=== PATIENT | female | born 1985 | race Caucasian/White ===

== ENCOUNTER 2018-02-09 04:47 | Inpatient (IN) | payer SELFPAY ==
[2018-02-09] MEDS ORDERED: Sodium Chloride 0.9% 10 ML Syringe FLUSH PRN (05:43)
[2018-02-09] MEDS ORDERED: Ampicillin 2 GM in Sodium Chloride 0.9% 100 ML IV ONE (05:43)
[2018-02-09] MEDS ORDERED: Lactated Ringers 1,000 ML IV SCH (05:45)
[2018-02-09] MEDS ORDERED: Oxytocin/Lactated Ringers 10 UNIT/1,000 ML BAG IV SCH ×2 (05:45→13:00)
[2018-02-09] MEDS: Ampicillin 1 GM in Sodium Chloride 0.9% 100 ML IV SCH ×3 (09:56→18:48)
--- NOTE | 2018-02-09 19:58 | PCM.LDHP ---
L&D History of Present Illness - General Date of Service: 02/09/18 Admit Problem/Dx: Patient Status Order with Admit Dx/Problem 02/09/18 05:43 Patient Status [ADT] Routine Admission Diagnosis/Problem Admission Diagnosis/Problem 02/09/18 19:52 40-1/7 week intrauterine , active labor, her previous section with desire for trial labor in an attempt to . Source of Information: Patient History Limitations: Reports: No Limitations - History of Present Illness Introduction:: History of present illness: Patient is a 32-year-old 4 para 4004 (full- term twins 1) who is admitted on 02/09/2018 in early active labor. She is ryland every 3-8 minutes is minimally to moderately uncomfortable and is unable to rest with them. Her DANNI is 02/08/2018 as determined by her certain last menstrual periods starting 05/04/2017. DANNI is supported by 2 ultrasounds first one being done on 06/23/2017 and again on 11/19/2017. Baby has been active. heart tones are in reassuring. Initially membranes are intact but are artificially ruptured resulting in a small amount of clear amniotic fluid. 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 Her certain last menstrual start 05/04/2017. Her cycles are regular. They occur every 28 days and last for prostate 5 days using no control to time conception. Menarche age 15. Previous deliveries have included the followin. Twin gestation delivering 04/16/2016 at 38 weeks gestational age: Twin A 6 lbs. 4 oz. female, section, breech presentation, child's name is Jamie. Twin B, 6 lbs. 6 oz., female, section also breech. Child's name is Crystian 2. 06/06/2014 delivered at 38 weeks gestation, 7 lbs. 6 oz.'s name is Nataly 3. 07/19/2012 delivered at 39 weeks gestational age Samantha NOEL Patient declined genetic testing. She declined flu vaccination. She desired a trial of labor after section for vaginal after section. The procedure, risks, benefits are discussed in detail with patient. She is group B strep positive and therefore is a candidate for antibiotic prophylaxis in labor and delivery. Section was done for breech breech twins. She plans to breast-feed. Patient was in centering . She began her care at 7 weeks gestational age on 06/23/2017. Her weight gain was from 170 up to 191.2 pounds. Her fundal height growth was normal. Her vital signs are stable. She had a relatively unremarkable . Laboratory testing in showed blood to be A positive. Negative antibody screen. First hemoglobin was 12.8 g/dL. Weight was were 257, 000. Her Pap smear was negative. She is rubella immune. RPR is nonreactive. Hepatitis B and HIV assays were both negative. Gonorrhea and chlamydia assays were both negative. Second trimester laboratory testing showed hemoglobin 11.5 which time she was started on ferrous sulfate 325 mg per day. Her platelets are normal at 246,000. Her 1 hour GTT was 120. Her group B strep screen was positive. Allergies: none Medications: Past medical history: 1. Vaginal delivery 2 Past surgical history: 1. Primary section for breech breech twins 2015 2. Pilonidal cyst removal 2004 Family history: No bleeding, blood clotting, anesthesia or -related problems no known family. Social history: Patient is , lives in [place], [place]. 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 She is a college graduate. She does not use any significant loss of alcohol, drugs or tobacco. Her 's name is Cole Silva. Review of systems: She is reporting good activity. Patient is having uterine activity contractions every 5-8 minutes. Skin: Negative Cardiovascular: No chest pain or exercise intolerance Respiratory: No infectious symptoms or shortness of breath GI: Negative : Findings associated with body habitus changes of . Musculoskeletal: Negative Neurological: Negative Physical exam: In general the patient is a well-developed, nourished, pleasant female in no acute distress. Blood pressure on last evaluation clinic 02/02/2018 was 110/62, weight is 191.2 pound, heart rate 146. Skin is warm and dry without lesions. HEENT, neck and back within normal limits Cardiovascular exam shows regular without murmurs Lungs are clear with good breath sounds in all lung dean. Breast exam deferred having that done first visit and found to be normal Abdomen is protuberant with fundal height consistent with term at 39+ centimeters Cervical exam as above. 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: Reports: , Other (See Below) Other OB/BYN History: 2016 - Infectious Disease History Infectious Disease History: Reports: Chicken Pox - Past Surgical History GI Surgical History: Reports: Other (See Below) Other GI Surgeries/Procedures: pylonoidal cyst removal 2004 Social & Family History - Tobacco Use Smoking Status *Q: Never Smoker - Recreational Drug Use Recreational Drug Use: No H&P Review of Systems - Review of Systems: Review Of Systems: See Below L&D Exam - Exam Exam: See Below - Vital Signs Vital Signs: Last Vital Signs Temp 36.1 C 02/09/18 04:53 Pulse 79 02/09/18 04:53 Resp 18 02/09/18 04:53 BP 115/61 02/09/18 04:53 Pulse Ox Weight: 85.23 kg - Patient Data Lab Results Last 24 hrs: Laboratory Results - last 24 hr 02/09/18 02/09/18 Range/Units 06:00 06:00 WBC 8.10 (3.98-10.04) K/mm3 RBC 4.17 (3.98-5.22) M/mm3 Hgb 10.2 L (11.2-15.7) gm/L Hct 31.9 L (34.1-44.9) % MCV 76.5 L (79.4-94.8) fl MCH 24.5 L (25.6-32.2) pg MCHC 32.0 L (32.2-35.5) g/dl RDW Std Deviation 37.7 (36.4-46.3) fL Plt Count 258 (182-369) K/mm3 MPV 10.5 (9.4-12.3) fl Neut % (Auto) 67.6 (34.0-71.1) % Lymph % (Auto) 25.1 (19.3-51.7) % Island % (Auto) 6.3 (4.7-12.5) % Eos % (Auto) 0.7 (0.7-5.8) Baso % (Auto) 0.1 (0.1-1.2) % Neut # (Auto) 5.47 (1.56-6.13) K/mm3 Lymph # (Auto) 2.03 (1.18-3.74) K/mm3 Island # (Auto) 0.51 H (0.24-0.36) K/mm3 Eos # (Auto) 0.06 (0.04-0.36) K/mm3 Baso # (Auto) 0.01 (0.01-0.08) K/mm3 Blood Type A POSITIVE Gel Antibody Screen Negative Result Diagrams: 02/09/18 06:00 Problem List Initiated/Reviewed/Updated: Yes Orders Last 24hrs: Active Orders 24 hr Category Date Time Status Patient Status [ADT] Routine ADT 02/09/18 05:43 Active Activity as Tolerated [RC] PFP Care 02/09/18 05:43 Active Communication Order [RC] ASDIRECTED Care 02/09/18 05:43 Active Heart Tones [RC] ASDIRECTED Care 02/09/18 05:43 Active Notify Provider [RC] PFP Care 02/09/18 05:43 Active Notify Provider [RC] PRN Care 02/09/18 05:43 Active Peripheral IV Care [RC] . DIRECTED Care 02/09/18 05:43 Active Verify Patient Consent Obtain [RC] ASDIRECTED Care 02/09/18 05:44 Active Vital Signs [RC] PER UNIT ROUTINE Care 02/09/18 05:43 Active Regular Diet [DIET] Diet 02/09/18 Lunch Active Ampicillin 1 gm Med 02/09/18 10:00 Active Sodium Chloride 0.9% [Normal Saline] 100 ml IV Q4H Lactated Ringers [Ringers, Lactated] 1,000 ml Med 02/09/18 05:45 Active IV ASDIRECTED Oxytocin/Lactated Ringers [Pitocin in LR 10 Units/1,000 Med 02/09/18 05:45 Active ML] 10 unit in 1,000 ml IV .CONTINUOUS Oxytocin/Lactated Ringers [Pitocin in LR 10 Units/1,000 Med 02/09/18 13:00 Active ML] 10 unit in 1,000 ml IV TITRATE Sodium Chloride 0.9% [Saline Flush] Med 02/09/18 05:43 Active 10 ml FLUSH ASDIRECTED PRN Electronic Heart Tones Ext w TOCO [WOMSER] Oth 02/09/18 05:43 Ordered Routine Electronic Heart Tones Internal [WOMSER] Per Unit Ot 02/09/18 05:43 Ordered Routine Peripheral IV Insertion Adult [OM.PC] Routine Ot 02/09/18 05:43 Ordered Resuscitation Status Routine Resus Stat 02/09/18 05:43 Ordered Medication Orders Ampicillin Sodium 1 gm/ Sodium (Chloride) 100 mls @ 200 mls/hr IV Q4H ADRIAN Last Admin: 02/09/18 18:48 Dose: 200 mls/hr Infusion: 02/09/18 14:27 Dose: 200 mls/hr Admin: 02/09/18 13:57 Dose: 200 mls/hr Infusion: 02/09/18 10:26 Dose: 200 mls/hr Admin: 02/09/18 09:56 Dose: 200 mls/hr Lactated Ringer's (Ringers, Lactated) 1,000 mls @ 100 mls/hr IV ASDIRECTED ADRIAN Last Infusion: 02/09/18 15:20 Dose: 0 mls/hr Admin: 02/09/18 13:03 Dose: 100 mls/hr Oxytocin/Lactated Ringer's (Pitocin In Lr 10 Units/1,000 Ml) 10 unit in 1,000 mls @ 500 mls/hr IV .CONTINUOUS ADRIAN Oxytocin/Lactated Ringer's (Pitocin In Lr 10 Units/1,000 Ml) 10 unit in 1,000 mls @ 72 mls/hr IV TITRATE ADRIAN; Protocol Last Titration: 02/09/18 15:20 Dose: 0 munits/min, 0 mls/hr Admin: 02/09/18 13:56 Dose: 2 munits/min, 12 mls/hr Sodium Chloride (Saline Flush) 10 ml FLUSH ASDIRECTED PRN PRN Reason: Keep Vein Open Assessment/Plan Comment:: Assessment: 1. 40-1/7 week intrauterine , early labor, history of previous section desire for . 2. Patient plans to breast-feed 3 Rubella titer is positive 4. Patient desires natural labor Plan: 1. Natural labor 2 Anticipate normal spontaneous vaginal delivery . 3. Support breast-feeding 4. Consent for and to be signed 5. Maintain IV access because of the status 6. labs to be done ahead of time 7. Anesthesia and surgery are informed of patient's labor.
--- NOTE | 2018-02-09 20:30 | PCM.SN ---
- Free Text/Narrative Note: Delivery note: Brittany is a 32-year-old 4 now para 4005 white female who is admitted on the a.m. of 02/09/2018 in active labor. She is 40-1/7 weeks gestational age with an DANNI of 02/08/2018. She started in labor early this a.m. and progressed to contractions every 5-8 minutes at the time of admission. Artificial rupture membranes is undertaken. Patient slowly progressed to cervical dilation by approximately 2000 hrs. She pushed 2 and delivered a viable, mesa, female named Norris, Apgars 8 and 9, weight was 3570 g (7 pounds 13.9 ounces) in a left occiput anterior position over an intact perineum. Nose mouth bulb suction. Baby was placed on mom's abdomen and the cord was clamped 2 and cut by the baby's father. Cord blood obtained. Perineum was inspected and found to be intact. No stitches were needed. The placenta then delivered in a [place]ox fashion, appeared intact and complete and was discarded per patient desire. Estimated blood loss was 100 mL. Patient plans to breast-feed. Condition: Good
[2018-02-09] MEDS ORDERED: Lanolin 100% Cream 7 GM Tube TOP PRN (22:16)
[2018-02-09] MEDS ORDERED: Ibuprofen 600 MG Tab PO PRN (22:16)
[2018-02-09] MEDS ORDERED: Witch Hazel Medicated Pads 100/Jar TOP PRN (22:16)
[2018-02-09] MEDS ORDERED: Acetaminophen 325 MG Tab PO PRN (22:16)
[2018-02-09] MEDS ORDERED: Benzocaine/Menthol 20%-0.5% Spray 56 GM Canister TOP PRN (22:16)
[2018-02-09] MEDS ORDERED: Docusate Sodium 100 MG Cap PO PRN (22:16)
[2018-02-10] MEDS ORDERED: Prenatal Multivitamin with Calcium/Folic Acid/Iron Tab PO SCH (09:00)
[2018-02-11] MEDS: Ampicillin 1 GM in Sodium Chloride 0.9% 100 ML IV SCH (01:37)
--- NOTE | 2018-02-11 06:52 | PCM.DCSUM1 ---
Discharge Summary - Hospital Course Free Text/Narrative:: Brittany is a 32-year-old 4 now para 4005 white female who is admitted on the a.m. of 02/09/2018 in active labor. She is 40-1/7 weeks gestational age with an DANNI of 02/08/2018. She started in labor early this a.m. and progressed to contractions every 5-8 minutes at the time of admission. Artificial rupture membranes is undertaken. Patient slowly progressed to cervical dilation by approximately 2000 hrs. She pushed 2 and delivered a viable, mesa, female named Norris, Apgars 8 and 9, weight was 3570 g (7 pounds 13.9 ounces) in a left occiput anterior position over an intact perineum. Nose mouth bulb suction. Baby was placed on mom's abdomen and the cord was clamped 2 and cut by the baby's father. Cord blood obtained. Perineum was inspected and found to be intact. No stitches were needed. The placenta then delivered in a Maddox fashion, appeared intact and complete and was discarded per patient desire. Estimated blood loss was 100 mL. Patient plans to breast-feed. Patient's course is been unremarkable. She is breast-feeding without problems, voiding well and ambulating without concerns. Patient ready for discharge. - Discharge Data Discharge Date: 02/11/18 Discharge Disposition: Home, Self-Care 01 Condition: Good - Patient Instructions Diet: Regular Diet as Tolerated (nursing diet with increased calcium and calories) Activity: As Tolerated (No intercourse or tampons until bleeding resolves) Driving: May Drive Today Showering/Bathing: May Shower (May take a bath) Notify Provider of: Fever, Increased Pain, Swelling and Redness, Nausea and/or Vomiting - Discharge Plan Home Medications: Home Meds Vits #93/Iron Fum/FA [ Formula Tablet] 02/09/18 [History] Acetaminophen [Tylenol] 650 mg PO Q4H PRN tablet 02/11/18 [Rx] Ibuprofen [IJD: Ibuprofen] 600 mg PO Q4H PRN tablet 02/11/18 [Rx] Referrals: Jose Manuel Morales MD [Primary Care Provider] - (Farooq Morales2 weeks.) - Discharge Summary/Plan Comment DC Time >30 min.: No Discharge Summary/Plan Comment: Discharge instructions: 1. Discharge home 2. Diet, activity and follow-up discussed with patient. Recommend nursing diet with increased calories and calcium. 3. Precautions given concern increased pain, bleeding, temperature, signs/ symptoms of DVT/PE. 4. Medications per home medication was printed, discussed with and given to the patient. 5. Return to clinic-[facility]. Morales[facility] in 2 weeks. Diagnosis: Term -delivered Condition: Good - Patient Data Vitals - Most Recent: Last Vital Signs Temp 36.4 C 02/10/18 20:43 Pulse 65 02/10/18 20:43 Resp 16 02/10/18 20:43 BP 120/72 02/10/18 20:43 Pulse Ox 100 02/10/18 20:43 Weight - Most Recent: 85.23 kg I&O - Last 24 hours: Intake & Output 02/10/18 02/10/18 02/11/18 14:59 22:59 06:59 Intake Total 120 180 Balance 120 180 Med Orders - Current: Current Medications Acetaminophen (Tylenol) 650 mg PO Q4H PRN PRN Reason: mild pain or fever Benzocaine/Menthol (Dermoplast Pain Relief [place]) 0 gm TOP ASDIRECTED PRN PRN Reason: Perineal Comfort Measure Docusate Sodium (Colace) 100 mg PO BID PRN PRN Reason: Constipation Emollient Ointment (Lansinoh Hpa) 0 gm TOP ASDIRECTED PRN PRN Reason: Sore Nipples Ibuprofen (Motrin) 600 mg PO Q4H PRN PRN Reason: Mild pain or fever Last Admin: 02/10/18 09:09 Dose: 600 mg Prenat Multivit/[place]/Iron/Folic Ac ( Plus Iron) 1 each PO DAILY [facility] Last Admin: 02/10/18 09:09 Dose: 1 each Witch May (Tucks) 1 pad TOP ASDIRECTED PRN PRN Reason: Hemorrhoid pain Discontinued Medications Ampicillin Sodium 2 gm/ Sodium (Chloride) 100 mls @ 200 mls/hr IV ONETIME ONE Stop: 02/09/18 06:12 Last Admin: 02/09/18 06:04 Dose: 200 mls/hr Ampicillin Sodium 1 gm/ Sodium (Chloride) 100 mls @ 200 mls/hr IV Q4H [facility] Last Admin: 02/11/18 01:37 Dose: Not Given Lactated Ringer's (Ringers, Lactated) 1,000 mls @ 100 mls/hr IV ASDIRECTED ADRIAN Last Infusion: 02/09/18 15:20 Dose: 0 mls/hr Oxytocin/Lactated Ringer's (Pitocin In Lr 10 Units/1,000 Ml) 10 unit in 1,000 mls @ 500 mls/hr IV .CONTINUOUS ADRIAN Oxytocin/Lactated Ringer's (Pitocin In Lr 10 Units/1,000 Ml) 10 unit in 1,000 mls @ 72 mls/hr IV TITRATE ADRIAN; Protocol Last Titration: 02/09/18 15:20 Dose: 0 munits/min, 0 mls/hr Sodium Chloride (Saline Flush) 10 ml FLUSH ASDIRECTED PRN PRN Reason: Keep Vein Open
== END 2018-02-11 10:30 | disposition home or self-care (01) | DRG 775 ==
LOC: JD.OBCHECK 04:47 → JD.OB 04:51 → JD.OBCHECK 05:43 → JD.OB 05:51 → OBSVTOIN 20:08 → JD.OB 20:09
PROVIDERS: ADMIT Obstetrics & Gynecology; ATTEND Obstetrics & Gynecology
PROC: 10E0XZZ Delivery of Products of Conception, External Approach (ICD-10-PCS; principal; 2018-02-09)
PROC: 10907ZC Drainage of Amniotic Fluid, Therapeutic from Products of Conception, Via Natural or Artificial Opening (ICD-10-PCS; 2018-02-09)
PROC: 6A550ZT Pheresis of Cord Blood Stem Cells, Single (ICD-10-PCS; 2018-02-09)
DX: O34.219 Maternal care for unspecified type scar from previous cesarean delivery (principal); N85.8 Other specified noninflammatory disorders of uterus; Z3A.40 40 weeks gestation of pregnancy; Z37.0 Single live birth; O99.824 Streptococcus B carrier state complicating childbirth
CPT/HCPCS: 36415; 59025; 59409; 85025; 85027; 86850; 86900; 86901; A9270-GY; J0290; J2590; J7030; J7120